=== PATIENT | female | born 1980 | race Caucasian/White ===

== ENCOUNTER 2025-05-28 21:25 | Emergency (ER) | payer OTHER, SELFPAY ==
[2025-05-28 21:30] VITALS: BP 169/108
[2025-05-28 21:52] LABS: Hematocrit 40.6 % (37.0-47.0); Hemoglobin 12.5 g/dL (12.0-16.0); Mean Corp Hgb Conc. 30.8 g/dL (33.0-37.0); Mean Corpuscular Volume 84.9 fL (81.0-99.0); Nucleated Red Blood Cells % 0 %; Platelet Count 397 10^3/uL (130-400); Red Cell Dist. Width 15.5 % (11.5-14.5)
[2025-05-28 22:08] LABS: COVID-19 Antigen Negative (Negative)
[2025-05-28 22:17] LABS: ALT (SGPT) 27 U/L (0-35); AST (SGOT) 19 U/L (14-36); Albumin 4.5 g/dl (3.5-5.0); Alkaline Phosphatase 106 U/L (38-126); Blood Urea Nitrogen 13 mg/dl (7-17); Calcium 9.2 mg/dl (8.4-10.2); Carbon Dioxide 24 mmol/L (22-30); Chloride 105 mmol/L (98-107); Glucose 129 mg/dl (70-99); Potassium 4.2 mmol/L (3.5-5.1); Sodium 138 mmol/L (135-145); Total Protein 7.8 g/dl (6.3-8.2); eGFR > 60.00
--- NOTE | 2025-05-29 00:03 | ED.GENMED ---
ED Provider Triage
<Leighton Alfaro MD, Resident - Last Filed: 05/29/25 03:13>
-
Patient seen by provider in Triage?: Seen in Triage
History of Present Illness
<Leighton Alfaro MD, Resident - Last Filed: 05/29/25 03:13>
General
Chief Complaint: Cardiac Symptoms
Source: patient
Exam Limitations: none
Time Seen by Provider: 05/28/25 23:23
History of Present Illness
History of Present Illness:
44-year-old female who states that she has had a sinus infection, ear pain, headache for 1 week that has gotten progressively worse. Went to the urgent care [facility] in [place], where they did an EKG and she had an extremely high heart rate in the 150s.
She was then told to present to the ER. She is experiencing rhinorrhea, ear pain without any ear discharge, tearing, sore throat, 1 episode of vomiting a few days ago, sinus headache. No cough, chest pain, nausea, vomiting, palpitations, neck
pain/stiffness, visual changes, dysuria, urinary frequency, abdominal pain. No previous cardiac history.
Past History
<Leighton Alfaro MD, Resident - Last Filed: 05/29/25 03:13>
Past History
ED Past Medical History: Other (Depression)
ED Past Surgical History: None
Social History
Tobacco: Non-smoker
Alcohol: None
Drug: None
Personal:
Living: with family
Employment: Employed
Review of Systems
<Leighton Alfaro MD, Resident - Last Filed: 05/29/25 03:13>
Review of Systems
All Other Systems: ROS reviewed and negative except as documented in HPI and ROS
Phy Exam
<Leighton Alfaro MD, Resident - Last Filed: 05/29/25 03:13>
General Physical Exam
General Presentation: well appearing and no apparent distress
General Skin: warm
General Habitus: normal
General Mental: alert
ENT Exam
ENT Exam: other (Post nasal drip,B/L erythemous ear canal, boggy nasal turbinate's, periorbital erythema of the left nostril.)
Cardiovascular Exam
Cardiovascular Exam: regular rate/rhythm and no edema
Pulmonary Exam
Pulmonary Exam: lungs clear and no respiratory distress
Gastrointestinal Exam
Gastrointestinal Exam: normal bowel sounds, non tender, soft and non distended
Neurological Exam
Neurological Exam: alert and oriented x3
Skin Exam
Skin Exam: normal color and warm/dry
Course
<Leighton Alfaro MD, Resident - Last Filed: 05/29/25 03:13>
Orders/Labs/Results
Orders:
Orders
05/28/25 21:34
Electrocardiogram (*1) Urgent
Reason for Study: Tachycardia
EKG- Treatment ONCE
05/28/25 21:45
COVID-19 Antigen Urgent
Source: Nasal Swab
Complete Blood Count/With Diff Urgent
Comprehensive Metabolic Panel Urgent
TSH Reflex To Free T4 Urgent
Comment: ADD ON
Influenza A+B Rapid Molecular Urgent
JYOTI Source: Nasal Swab
Specimen Description:
Rapid Strep Group A Urgent
JYOTI Source: Throat/Pharynx
Specimen Description:
Date Specimen was Collected: 05/28/25
Time Specimen was Collected: 21:34
05/28/25 23:57
Lactic Acid Urgent
Blood Culture Q30M
JYOTI Source: Blood/Venous
Specimen Description:
05/28/25 23:58
0.9% Sodium Chloride 1000 ml [Nss] 2,000 ml IV BOLUS
05/29/25 00:03
Acetaminophen [Tylenol] 650 mg PO NOW STA
Acetaminophen [Tylenol] 650 mg PO Q4HPRN PRN
05/29/25 00:14
Add On- LAB Urgent
Tests Added?: TSH w reflex to free T-4
Acetaminophen [Tylenol] 1,000 mg PO NOW STA
05/29/25 00:41
Blood Culture Q30M
JYOTI Source: Blood/Venous
Specimen Description:
05/29/25 00:45
Ampicillin/Sulbactam 3 G [Unasyn] 3 gm 0.9% Sodium Chloride 100 ml [Nss] 100 ml IV NOW
Abnormal Lab Results
05/28/25
21:45
WBC 14.7 H 10^3/uL
(4.8-10.8)
MCH 26.2 L pg
(27.0-31.0)
MCHC 30.8 L g/dL
(33.0-37.0)
RDW 15.5 H %
(11.5-14.5)
Abs Immat Gran (auto) 0.1 H 10^3/uL
(0-0.05)
Absolute Neuts (auto) 11.9 H 10^3/uL
(1.4-6.5)
Absolute Monos (auto) 1.0 H 10^3/uL
(0.1-0.6)
Neutrophils % 80.9 H %
(42.2-75.2)
Lymphocytes % 11.1 L %
(20.5-51.1)
Glucose 129 H mg/dl
(70-99)
05/28/25 21:45
05/28/25 21:45
Vital Signs
Initial and Last Documented VS:
Initial Vital Signs
Temp Pulse Resp BP Pulse Ox
100.6 F H 156 19 169/108 99
05/28/25 21:30 05/28/25 21:30 05/28/25 21:30 05/28/25 21:30 05/28/25 21:30
Last Documented Vital Signs
Temp Pulse Resp BP Pulse Ox
99.2 F 133 12 169/108 99
05/29/25 02:09 05/29/25 00:00 05/29/25 00:00 05/28/25 21:30 05/29/25 00:04
<Kathryn Lopez, DO - Last Filed: 05/29/25 02:59>
Orders/Labs/Results
Orders:
Orders
05/28/25 21:34
Electrocardiogram (*1) Urgent
Reason for Study: Tachycardia
EKG- Treatment ONCE
05/28/25 21:45
COVID-19 Antigen Urgent
Source: Nasal Swab
Complete Blood Count/With Diff Urgent
Comprehensive Metabolic Panel Urgent
TSH Reflex To Free T4 Urgent
Comment: ADD ON
Influenza A+B Rapid Molecular Urgent
JYOTI Source: Nasal Swab
Specimen Description:
Rapid Strep Group A Urgent
JYOTI Source: Throat/Pharynx
Specimen Description:
Date Specimen was Collected: 05/28/25
Time Specimen was Collected: 21:34
05/28/25 23:57
Lactic Acid Urgent
Blood Culture Q30M
JYOTI Source: Blood/Venous
Specimen Description:
05/28/25 23:58
0.9% Sodium Chloride 1000 ml [Nss] 2,000 ml IV BOLUS
05/29/25 00:03
Acetaminophen [Tylenol] 650 mg PO NOW STA
Acetaminophen [Tylenol] 650 mg PO Q4HPRN PRN
05/29/25 00:14
Add On- LAB Urgent
Tests Added?: TSH w reflex to free T-4
Acetaminophen [Tylenol] 1,000 mg PO NOW STA
05/29/25 00:41
Blood Culture Q30M
JYOTI Source: Blood/Venous
Specimen Description:
05/29/25 00:45
Ampicillin/Sulbactam 3 G [Unasyn] 3 gm 0.9% Sodium Chloride 100 ml [Nss] 100 ml IV NOW
Abnormal Lab Results
05/28/25
21:45
WBC 14.7 H 10^3/uL
(4.8-10.8)
MCH 26.2 L pg
(27.0-31.0)
MCHC 30.8 L g/dL
(33.0-37.0)
RDW 15.5 H %
(11.5-14.5)
Abs Immat Gran (auto) 0.1 H 10^3/uL
(0-0.05)
Absolute Neuts (auto) 11.9 H 10^3/uL
(1.4-6.5)
Absolute Monos (auto) 1.0 H 10^3/uL
(0.1-0.6)
Neutrophils % 80.9 H %
(42.2-75.2)
Lymphocytes % 11.1 L %
(20.5-51.1)
Glucose 129 H mg/dl
(70-99)
05/28/25 21:45
05/28/25 21:45
Vital Signs
Initial and Last Documented VS:
Initial Vital Signs
Temp Pulse Resp BP Pulse Ox
100.6 F H 156 19 169/108 99
05/28/25 21:30 05/28/25 21:30 05/28/25 21:30 05/28/25 21:30 05/28/25 21:30
Last Documented Vital Signs
Temp Pulse Resp BP Pulse Ox
99.2 F 133 12 169/108 99
05/29/25 02:09 05/29/25 00:00 05/29/25 00:00 05/28/25 21:30 05/29/25 00:04
<Leighton Alfaro MD, Resident - Last Filed: 05/29/25 03:13>
MDM/Problems Addressed
Differential Diagnosis Includes:
Bacterial sinusitis, otitis media with early sepsis, supraventricular tachycardia, pneumonia, pharyngitis
MDM/Problems Addressed:
- Vitals shows a temperature of 100.6, heart rate is elevated at 133, patient is nontoxic-appearing
- WBC is 14.3 and elevated
- CMP shows a glucose of 129 otherwise unremarkable
- IV fluids are ordered, Tylenol is ordered for fever, empiric antibiotic Unasyn initiated for fever plus increased WBC count, blood cultures are pending
Will discharge patient home ( heart rate is now 115) on Augmentin for acute sinusitis and instructions to follow up with our FM clinic in 5 days. Use Tylenol/ Motrin for fever.
<Leighton Alfaro MD, Resident - Last Filed: 05/29/25 03:13>
*Pulse Oximetry
SaO2: 99
Oxygen Mode of Delivery: Room air
<Kathryn Lopez DO - Last Filed: 05/29/25 02:59>
*Pulse Oximetry
Patient hypoxic: no
*EKG
Interpreted by ED Provider?: Yes
Comparison EKG: no comparison EKG present
Rate: tachycardiac
Rhythm: sinus
[place]: normal axis
Interval: normal interval
QRS Pattern: normal QRS
Ischemia: no ischemia
*Cherry Picker Operator Interpretation
Rate: tachycardiac
Interpretation: abnormal
Rhythm: sinus
*Critical Care Note
Total Time (30-74mins, 75-104mins- exclusive of procedures): Not Applicable
ED Attending Note
<Leighton Alfaro MD, Resident - Last Filed: 05/29/25 03:13>
-
Portions of this chart may have been created with voice recognition software.� Occasional wrong word or��sound alike� substitutions may have occurred due to the inherent limitations of voice recognition software.
<Kathryn R. Lopez, DO - Last Filed: 05/29/25 02:59>
ED Attending Note
Patient seen and examined by attending physician: Yes
I performed a history and physical exam of patient and discussed management with resident, I reviewed resident's note and agree with documented findings and plan of care.: Yes
ED Attending Note:
This is a 44-year-old woman with history of depression, chronically maintained on Cymbalta. She presents with 1 to 1.5-week history of sinus infection, nasal congestion, ear pain left greater than right, sore throat, frontal headache. Subjective
fever throughout the week. Has not checked her temperature at home. No significant cough, no chest pain or shortness of breath, no nausea no vomiting no diarrhea no constipation, no abdominal pain or back pain. No leg pain or swelling. No rash
no joint pain. Has been eating and drinking normally. No history of similar episodes in the past. Her daughter now has somewhat similar symptoms. No recent travel nor recent antibiotic use.
She denies risk of , last menstrual period 1 week ago, normal and on time.
She presented to urgent care today and was sent to the ED due to rapid heart rate. She denies palpitations nor dizziness or lightheadedness. As above, denies chest pain, no shortness of breath.
44-year-old woman appears her stated age, bright and alert, pleasant, appears in no acute distress. Overall nontoxic in appearance. Moderate nasal, stuffy voice is noted. Low-grade fever noted. Moderate sinus tachycardia. Mildly hypertensive.
HEENT: TMs with scant clear effusion, left TM mildly retracted. Canals are clear. Moderately boggy turbinates with pearly rhinorrhea, moderate pearly postnasal drip with minimal posterior pharyngeal injection without edema nor exudate. Oral
mucosa is moist.
Neck is supple, nontender, no adenopathy, no meningismus.
Heart is regular rhythm, tachycardic at 130. No murmur no rub.
Lungs are clear to auscultation, respirations are easy nonlabored.
Abdomen is soft without appreciable tenderness.
Extremities without clubbing or cyanosis no edema. Peripheral pulses are full and equal. Well-perfused.
Skin is warm and dry, normal color. Good turgor. No rash.
Concern for acute sinusitis, SIRS versus sepsis. As patient lacks chest pain nor shortness of breath nor cough, pericarditis, myocarditis, pneumonia, CHF are unlikely.
EKG shows sinus tachycardia otherwise unremarkable.
Labs thus far reveal mildly elevated white blood cell count of 14.7 with mild left shift. Unremarkable chemistries.
COVID and flu testing are negative. Rapid strep is negative.
Will check lactic acid, blood cultures. Could consider thyroid disorder thus will check TSH with reflex to free T4.
Will give Tylenol for fever, administer IV fluids and will plan for an IV dose of antibiotic for acute bacterial sinusitis.
Overall well in appearance. At this point no indication for imaging.
02:40
Patient continues to appear well.
Fever dissipating.
Sinus tachycardia improving, currently at 115. Hypertension improving, currently 130/80.
TSH is normal. Lactic acid is normal.
Blood cultures are pending.
Will discharge to home with prescription for Augmentin for acute sinusitis.
Discussed importance of staying well-hydrated on a daily basis. Tylenol versus ibuprofen as needed for fever.
Patient currently lacks a PCP. Will refer to our family practice residency clinic for prompt follow-up.
Return precautions discussed.
Discharge Plan
Departure
Patient Disposition: Home (Routine Discharge)
Date of Disposition: 05/29/25
Time of Disposition: 02:57
Patient with high blood pressure during this ER visit?: No
Condition: Good
Discharge Problem:
Acute bacterial sinusitis, Sinus tachycardia
Instructions: Sinusitis in adults - ED (DC)
Prescriptions:
New
amoxicillin-pot clavulanate 875-125 mg tablet
1 tab PO BID Qty: 20 0RF
Referrals:
[facility] [Outside] - Call in 1-3 days for appt
NONE,* [Family Provider, Internal Medicine]
Interventions
Interventions:
*Risk Screen - Suicide Last Done: 05/28/25 21:32
*General Assessment Last Done: 05/28/25 22:58
*Neglect/Abuse Screening Last Done: 05/28/25 21:32
*ED- Fall Risk Assessment Last Done: 05/28/25 22:58
*ED COVID-19 Vaccine History Last Done: 05/28/25 22:58
*ED Influenza Vaccine History Last Done: 05/28/25 22:58
ED- Pulmonary Assessment Last Done: 05/28/25 22:58
ED- Cardiac Assessment Last Done: 05/28/25 22:58
Discharge Date and Time
Print Language: HUNGARIAN
[2025-05-29] MEDS: TYLENOL 1000 MG PO (00:29)
[2025-05-29] MEDS: NSS 2000 IV (00:31)
[2025-05-29] MEDS: UNASYN IV (01:22)
== END 2025-05-29 03:20 | disposition home or self-care (01) ==
LOC: EMR 21:25
PROVIDERS: Emergency Medicine; EMERGENCY PHYSICIAN Emergency Medicine
DX: J01.80 Other acute sinusitis (principal); B96.89 Other specified bacterial agents as the cause of diseases classified elsewhere; R00.0 Tachycardia, unspecified; F32.A Depression, unspecified; Z79.899 Other long term (current) drug therapy; Z11.52 Encounter for screening for COVID-19
CPT/HCPCS: 96365; 96361; 99284; 80053; 83605; 84443; 85025; 87040; 87070; 87502; 87811; 87880; 93005